=== PATIENT | female | born 1930 | race Caucasian/White ===

== ENCOUNTER 2017-08-20 01:43 | Inpatient (IN) | payer MEDICARE, OTHER ==
[~2017-08-20] VITALS: Ht 162.6 cm; Wt 59.0 kg
[~2017-08-20 01:43] MED LIST: ATOR1TAB PO; CITA10TA70 PO; CITA20TA3 GT; DABI150C PO; DIGO0.1262 PO; DILT120C65 PO; DOCU-137 PO; FERR-20 PO; METO25TA5 PO; OMEP20CA74 OR; RISP0.5T12 PO
[2017-08-20 02:22] LABS: Hematocrit 43.6 % (36.0-46.0); Hemoglobin 14.4 g/dL (12.2-16.2); Mean Corpuscular Hemoglobin 27.1 pg (28.0-32.0); Mean Corpuscular Hgb Conc. 32.9 g/dL (32.0-36.0); Mean Corpuscular Volume 82.4 fL (80.0-100.0); Platelet Count (auto) 266 10^3/uL (140-450); Red Blood Cells 5.29 10^6/uL (4.0-5.20); Red Cell Distribution Width 16.4 % (11.8-14.3); White Blood Cell 4.4 10^3/uL (4.4-10.8)
[2017-08-20 02:32] LABS: Basophils % (manual) 0 (0.0-2.0); Blast Cells 0; Eosinophils % (manual) 0 (0-7); Metamyelocytes % 0; Myelocytes % 0; Promyelocytes % 0; Reactive Lymphocytes 0
[2017-08-20 02:37] LABS: INR 1.09 (0.9-1.15); Partial Thromboplastin Time 35.5 sec (22.64-33.71); Prothrombin Time 11.9 sec (9.37-12.3)
[2017-08-20 02:44] LABS: Alanine Aminotransferase 11 U/L (13-56); Albumin 2.9 g/dL (3.4-5.0); Anion Gap 10 (5-15); Aspartate Aminotransferase 15 U/L (15-37); BUN/Creatinine Ratio 17.4; Blood Urea Nitrogen 20 mg/dL (7-18); Calcium 8.2 mg/dL (8.5-10.1); Carbon Dioxide 22 mmol/L (21-32); Chloride 106 mmol/L (98-107); GFR African American 58 mL/min; GFR Non-African American 48 mL/min; Glucose 123 mg/dL (74-106); Magnesium 2.2 mg/dL (1.6-2.6); Sodium 138 mmol/L (136-145)
[2017-08-20 02:49] LABS: Alkaline Phosphatase 72 U/L (45-117); Bilirubin, Total 0.6 mg/dL (0.2-1.0); Total Protein 6.9 g/dL (6.4-8.2)
[2017-08-20 03:10] LABS: Band Neutrophils % (manual) 7; Lymphocytes % (manual) 22 (10.0-50.0); Monocytes % (manual) 19 (0-12)
[2017-08-20 04:42] LABS: Amylase 34 U/L (25-115); Lipase 140 U/L (73-393)
[2017-08-20] MEDS ORDERED: DIGOXIN (250MCG/ML) 2 ML AMPULE IV ONE (04:45)
[2017-08-20] MEDS ORDERED: SODIUM CHLORIDE 0.9% 1,000 ML IV ONE (04:45)
[2017-08-20 06:22] LABS: Urine Bacteria MANY /hpf (None Seen); Urine Blood 1+ /uL (Negative); Urine Mucus FEW (None Seen); Urine Specific Gravity 1.018 (1.001-1.035); Urine WBC 870 /hpf (0 - 5)
[2017-08-20] MEDS ORDERED: cefTRIAXone 1GM/10ml IVPUSH 10 ML IV ONE (07:15)
[2017-08-20] MEDS ORDERED: SODIUM CHLORIDE 0.9% 1,000 ML IV SCH (09:20)
[2017-08-20] MEDS ORDERED: IOHEXOL 350 MG/ML 100ML IJ ONE (09:25)
[2017-08-20] MEDS ORDERED: TEMAZEPAM 15 MG CAP PO PRN (09:30)
[2017-08-20] MEDS ORDERED: NITROGLYCERIN 0.4 MG SL TAB SL PRN (09:30)
[2017-08-20] MEDS ORDERED: ACETAMINOPHEN 500 MG TAB PO PRN (09:30)
[2017-08-20] MEDS ORDERED: LORazepam 0.5 MG TAB PO PRN (09:30)
[2017-08-20] MEDS ORDERED: LACTULOSE 20Gm/30ML SOLN PO PRN (09:30)
[2017-08-20] MEDS ORDERED: MORPHINE SULFATE 4 MG/ML SYR/VIAL IV PRN (09:30)
[2017-08-20] MEDS ORDERED: PROMETHAZINE HCL 25 MG/ML 1ML IV PRN (09:30)
[2017-08-20] MEDS ORDERED: HYDROcodone-ACET 5/325MG TAB PO PRN (09:30)
[2017-08-20] MEDS: METOPROLOL TARTRATE 25 MG TAB PO SCH ×2 (09:41→21:56)
[2017-08-20] MEDS ORDERED: DIGOXIN (250MCG/ML) 2 ML AMPULE ONE (09:55)
[2017-08-20] MEDS ORDERED: DIGOXIN (250MCG/ML) 2 ML AMPULE IV SCH (10:00)
[2017-08-20] MEDS ORDERED: DIGOXIN 0.25 MG TAB PO SCH (10:00)
[2017-08-20] MEDS: ENOXAPARIN SOD 40 MG/0.4 ML SYRINGE SC SCH ×2 (10:01→21:55)
[2017-08-20] MEDS: ASPirin 81 mg TAB PO SCH (10:10)
[2017-08-20 10:23] LABS: CRP High Sensitivity 5.01 mg/dL (< 0.3)
[2017-08-20] MEDS: SODIUM CHLORIDE 0.9% 1,000 ML IV SCH ×2 (11:48→21:31)
[2017-08-20 20:00] VITALS: BP 109/79
[2017-08-20 21:41] VITALS: BP 109/79
[2017-08-21 04:33] VITALS: BP 106/54
[2017-08-21] MEDS: SODIUM CHLORIDE 0.9% 1,000 ML IV SCH (07:39)
[2017-08-21 08:00] VITALS: BP 93/62
[2017-08-21] MEDS: cefTRIAXone 1GM/10ml IVPUSH 10 ML IV SCH (08:32)
[2017-08-21 09:00] VITALS: BP 102/62
[2017-08-21] MEDS: ASPirin 81 mg TAB PO SCH (09:38)
[2017-08-21] MEDS: METOPROLOL TARTRATE 25 MG TAB PO SCH ×2 (09:39→21:36)
[2017-08-21] MEDS: ENOXAPARIN SOD 40 MG/0.4 ML SYRINGE SC SCH (09:39)
[2017-08-21] MEDS ORDERED: DIGOXIN (250MCG/ML) 2 ML AMPULE IV SCH (10:00)
[2017-08-21 10:11] LABS: Albumin 2.8 g/dL (3.4-5.0); BUN/Creatinine Ratio 18.2; Bilirubin, Total 0.3 mg/dL (0.2-1.0); Calcium 8.5 mg/dL (8.5-10.1); Potassium 4.6 mmol/L (3.5-5.1); Total Protein 6.6 g/dL (6.4-8.2)
[2017-08-21] MEDS ORDERED: FUROSEMIDE 20 MG/2 ML VIAL IV ONE (12:00)
[2017-08-21] MEDS ORDERED: POTASSIUM CHL 10% (20 MEQ/15ML) 15ml ORAL SOLN PO ONE (12:00)
[2017-08-21 13:00] VITALS: BP 127/68
[2017-08-21] MEDS ORDERED: CALC600C PO (14:37)
[2017-08-21] MEDS ORDERED: BIS10RS PR (14:37)
[2017-08-21] MEDS ORDERED: LOP2C PO (14:37)
[2017-08-21 17:14] VITALS: BP 129/100
[2017-08-21] MEDS: DABIGATRAN 75 MG CAP PO SCH (21:46)
[2017-08-21 22:03] VITALS: BP 149/75
[2017-08-22 04:17] VITALS: BP 140/52
[2017-08-22 06:08] LABS: Basophils # (auto) 0 uL; Basophils % (auto) 0.2 % (0.0-2.0); Eosinophils # (auto) 0 uL; Eosinophils % (auto) 0.1 % (0.0-7.0); Hematocrit 47.9 % (36.0-46.0); Hemoglobin 15.5 g/dL (12.2-16.2); Lymphocytes # (auto) 0.8 uL; Lymphocytes % (auto) 16.6 % (10.0-50.0); Mean Corpuscular Hemoglobin 27.2 pg (28.0-32.0); Mean Corpuscular Hgb Conc. 32.4 g/dL (32.0-36.0); Mean Corpuscular Volume 83.8 fL (80.0-100.0); Monocytes # (auto) 0.7 uL; Monocytes % (auto) 13.4 % (0.0-12.0); Neutrophils # (auto) 3.5 uL; Neutrophils % (auto) 69.7 % (37.0-80.0); Nucleated Red Blood Cells % 0.1 %; Platelet Count (auto) 273 10^3/uL (140-450); Red Blood Cells 5.71 10^6/uL (4.0-5.20); Red Cell Distribution Width 15.7 % (11.8-14.3); White Blood Cell 4.9 10^3/uL (4.4-10.8)
[2017-08-22 06:28] LABS: BUN/Creatinine Ratio 15.9; Calcium 9.2 mg/dL (8.5-10.1)
[2017-08-22 09:10] VITALS: BP 144/92
[2017-08-22] MEDS: DIGOXIN 0.125 MG TAB PO SCH (09:31)
[2017-08-22] MEDS: DABIGATRAN 75 MG CAP PO SCH ×2 (09:56→22:27)
[2017-08-22] MEDS: cefTRIAXone 1GM/10ml IVPUSH 10 ML IV SCH (09:56)
[2017-08-22] MEDS: CITALOPRAM HYDROBR 20 MG TAB PO SCH (09:56)
[2017-08-22] MEDS: METOPROLOL TARTRATE 25 MG TAB PO SCH ×2 (09:57→22:27)
[2017-08-22] MEDS: ASPirin 81 mg TAB PO SCH (09:57)
[2017-08-22 12:17] VITALS: BP 118/68
[2017-08-22] MEDS ORDERED: ERTAPENEM SOD INJ 1 GM in SODIUM CHL 0.9% 100 ML IV ONE (12:30)
[2017-08-22 17:19] VITALS: BP 139/66
[2017-08-22 22:08] VITALS: BP 143/95
[2017-08-23] MEDS: MORPHINE SULF INJ 2 MG/ML SYRINGE 1ML IV PRN ×2 (00:52→09:39)
[2017-08-23 04:54] VITALS: BP 135/91
[2017-08-23 06:22] LABS: Basophils # (auto) 0 uL; Basophils % (auto) 0.3 % (0.0-2.0); Eosinophils # (auto) 0 uL; Eosinophils % (auto) 0.2 % (0.0-7.0); Hematocrit 47.5 % (36.0-46.0); Hemoglobin 15.6 g/dL (12.2-16.2); Lymphocytes # (auto) 0.7 uL; Lymphocytes % (auto) 13.8 % (10.0-50.0); Mean Corpuscular Hemoglobin 27.4 pg (28.0-32.0); Mean Corpuscular Hgb Conc. 32.9 g/dL (32.0-36.0); Mean Corpuscular Volume 83.3 fL (80.0-100.0); Monocytes # (auto) 0.7 uL; Monocytes % (auto) 13.3 % (0.0-12.0); Neutrophils # (auto) 3.7 uL; Neutrophils % (auto) 72.4 % (37.0-80.0); Nucleated Red Blood Cells % 0.1 %; Platelet Count (auto) 240 10^3/uL (140-450); Red Cell Distribution Width 15.4 % (11.8-14.3)
[2017-08-23 06:40] LABS: Calcium 8.6 mg/dL (8.5-10.1); Potassium 3.4 mmol/L (3.5-5.1)
[2017-08-23 06:42] LABS: BUN/Creatinine Ratio 22.4
[2017-08-23 09:05] VITALS: BP 143/87
[2017-08-23] MEDS: DABIGATRAN 75 MG CAP PO SCH ×2 (10:00→22:33)
[2017-08-23] MEDS: CITALOPRAM HYDROBR 20 MG TAB PO SCH (10:29)
[2017-08-23] MEDS: DIGOXIN 0.125 MG TAB PO SCH (10:29)
[2017-08-23] MEDS: ASPirin 81 mg TAB PO SCH (10:29)
[2017-08-23] MEDS: METOPROLOL TARTRATE 25 MG TAB PO SCH ×2 (10:30→22:33)
[2017-08-23] MEDS: ERTAPENEM SOD INJ 1 GM in SODIUM CHL 0.9% 100 ML IV SCH (11:02)
[2017-08-23 12:41] VITALS: BP 127/80
[2017-08-23 17:24] VITALS: BP 120/72
[2017-08-23] MEDS: BOOST 8 ounces PO SCH (18:00)
[2017-08-23 21:57] VITALS: BP 113/89
[2017-08-24 05:04] VITALS: BP 118/85
[2017-08-24 08:00] VITALS: BP 135/92
[2017-08-24] MEDS: BOOST 8 ounces PO SCH ×2 (08:00→17:50)
[2017-08-24] MEDS: CITALOPRAM HYDROBR 20 MG TAB PO SCH (10:00)
[2017-08-24] MEDS: METOPROLOL TARTRATE 25 MG TAB PO SCH ×2 (10:00→22:00)
[2017-08-24] MEDS: ASPirin 81 mg TAB PO SCH (10:00)
[2017-08-24] MEDS: DABIGATRAN 75 MG CAP PO SCH ×2 (10:00→22:00)
[2017-08-24] MEDS: DIGOXIN 0.125 MG TAB PO SCH (10:00)
[2017-08-24 11:42] VITALS: BP 109/84
[2017-08-24] MEDS: ERTAPENEM SOD INJ 1 GM in SODIUM CHL 0.9% 100 ML IV SCH (15:00)
[2017-08-24 16:50] VITALS: BP 140/94
[2017-08-24 21:45] VITALS: BP 147/74
[2017-08-25 04:49] VITALS: BP 129/71
[2017-08-25 05:56] LABS: Basophils # (auto) 0 uL; Basophils % (auto) 0.3 % (0.0-2.0); Eosinophils # (auto) 0 uL; Eosinophils % (auto) 0.6 % (0.0-7.0); Hematocrit 46.3 % (36.0-46.0); Lymphocytes % (auto) 20.5 % (10.0-50.0); Mean Corpuscular Hgb Conc. 32.5 g/dL (32.0-36.0); Monocytes # (auto) 0.5 uL; Monocytes % (auto) 11.1 % (0.0-12.0); Neutrophils # (auto) 3.3 uL; Neutrophils % (auto) 67.5 % (37.0-80.0); Nucleated Red Blood Cells % 0.1 %; Platelet Count (auto) 269 10^3/uL (140-450); Red Blood Cells 5.58 10^6/uL (4.0-5.20); Red Cell Distribution Width 15.8 % (11.8-14.3); White Blood Cell 4.9 10^3/uL (4.4-10.8)
[2017-08-25 06:06] LABS: BUN/Creatinine Ratio 28.3; Calcium 8.3 mg/dL (8.5-10.1); Potassium 3.4 mmol/L (3.5-5.1)
[2017-08-25 07:53] VITALS: BP 151/88
[2017-08-25 08:00] VITALS: BP 151/88
[2017-08-25] MEDS: BOOST 8 ounces PO SCH (08:00)
[2017-08-25] MEDS: ERTAPENEM SOD INJ 1 GM in SODIUM CHL 0.9% 100 ML IV SCH (10:00)
[2017-08-25] MEDS: ASPirin 81 mg TAB PO SCH (10:00)
[2017-08-25] MEDS: DIGOXIN 0.125 MG TAB PO SCH (10:00)
[2017-08-25] MEDS: METOPROLOL TARTRATE 25 MG TAB PO SCH ×2 (10:00→21:46)
[2017-08-25 11:31] VITALS: BP 127/91
[2017-08-25] MEDS ORDERED: PPN PER PHARMACY 0 ML IV SCH (13:45)
[2017-08-25] MEDS ORDERED: POTASSIUM CHL 20MEQ/50ML 50 ML IV ONE (15:00)
[2017-08-25] MEDS ORDERED: LIDOCAINE 1% HCL (LOCAL ANESTH.) INJ 20ML MDV ID ONE (16:15)
[2017-08-25 16:51] VITALS: BP 143/88
[2017-08-25] MEDS ORDERED: DEXTROSE (50%) 50ML SYRG IV SCH (20:00)
[2017-08-25] MEDS: MORPHINE SULF INJ 2 MG/ML SYRINGE 1ML IV PRN (20:26)
[2017-08-25] MEDS: CLINIMIX PER PHARMACY IV NR (20:56)
[2017-08-25] MEDS: SODIUM CHLOR 0.9% PF (SALINE LOCK) 10ML VIAL IV SCH (21:45)
[2017-08-25 22:04] VITALS: BP 159/91
[2017-08-26] VITALS (7 sets, daily range): BP systolic 144–158; BP diastolic 74–102
[2017-08-26] MEDS: InsuLIN REG 1unit/0.01ml Soln (100units/ml) SC SCH ×5 (06:00→23:47)
[2017-08-26] MEDS: ACCU-CHEK COMFORT CURVE STRIP VI SCH ×5 (06:06→23:46)
[2017-08-26 06:57] LABS: Basophils # (auto) 0 uL; Basophils % (auto) 0.3 % (0.0-2.0); Eosinophils # (auto) 0.1 uL; Eosinophils % (auto) 1.2 % (0.0-7.0); Hemoglobin 15.7 g/dL (12.2-16.2); Lymphocytes # (auto) 1.1 uL; Lymphocytes % (auto) 16.7 % (10.0-50.0); Mean Corpuscular Hemoglobin 27.2 pg (28.0-32.0); Mean Corpuscular Hgb Conc. 32.8 g/dL (32.0-36.0); Monocytes # (auto) 0.6 uL; Monocytes % (auto) 8.6 % (0.0-12.0); Neutrophils # (auto) 4.8 uL; Neutrophils % (auto) 73.2 % (37.0-80.0); Nucleated Red Blood Cells % 0.2 %; Platelet Count (auto) 301 10^3/uL (140-450); Red Blood Cells 5.78 10^6/uL (4.0-5.20); Red Cell Distribution Width 15.8 % (11.8-14.3); White Blood Cell 6.5 10^3/uL (4.4-10.8)
[2017-08-26 07:46] LABS: Potassium 4.2 mmol/L (3.5-5.1)
[2017-08-26 07:47] LABS: BUN/Creatinine Ratio 25.4
[2017-08-26 07:48] LABS: Bilirubin, Total 0.5 mg/dL (0.2-1.0); Calcium 9.1 mg/dL (8.5-10.1); Phosphorus 1.9 mg/dL (2.5-4.90)
[2017-08-26 07:49] LABS: Albumin 2.9 g/dL (3.4-5.0); Magnesium 2.5 mg/dL (1.6-2.6); Pre Albumin 12.9 mg/dL (20.0-40.0)
[2017-08-26] MEDS: SODIUM CHLOR 0.9% PF (SALINE LOCK) 10ML VIAL IV SCH ×2 (10:00→22:36)
[2017-08-26] MEDS: ERTAPENEM SOD INJ 1 GM in SODIUM CHL 0.9% 100 ML IV SCH (10:48)
[2017-08-26] MEDS ORDERED: POTASSIUM PHOSPHATE 22 MEQ in SODIUM CHL 0.9% 100 ML IV ONE (11:00)
[2017-08-26] MEDS: D5W 5% 1,000 ML IV SCH (17:05)
[2017-08-26] MEDS: CLINIMIX PER PHARMACY IV NR (19:49)
[2017-08-26] MEDS ORDERED: PPN PER PHARMACY IV NR ×7 (20:00)
[2017-08-26] MEDS ORDERED: methylPREDNISolone SOD SUCC 125 MG/2 ML VL ONE (23:09)
[2017-08-26] MEDS ORDERED: methylPREDNISolone SOD SUCC 125 MG/2 ML VL IV ONE (23:15)
[2017-08-26] MEDS ORDERED: DILTIAZEM HCL 25 MG/5 ML VIAL IV ONE ×2 (23:15→23:17)
[2017-08-27] VITALS (7 sets, daily range): BP systolic 94–122; BP diastolic 57–77
[2017-08-27] MEDS: ACCU-CHEK COMFORT CURVE STRIP VI SCH ×4 (06:22→23:41)
[2017-08-27] MEDS: InsuLIN REG 1unit/0.01ml Soln (100units/ml) SC SCH ×4 (06:22→23:45)
[2017-08-27 08:04] LABS: Albumin 2.7 g/dL (3.4-5.0); Bilirubin, Total 0.4 mg/dL (0.2-1.0); Calcium 8.6 mg/dL (8.5-10.1); Magnesium 2.4 mg/dL (1.6-2.6); Phosphorus 2.8 mg/dL (2.5-4.90); Potassium 4.3 mmol/L (3.5-5.1); Total Protein 6.8 g/dL (6.4-8.2)
[2017-08-27] MEDS: ERTAPENEM SOD INJ 1 GM in SODIUM CHL 0.9% 100 ML IV SCH (10:46)
[2017-08-27] MEDS: SODIUM CHLOR 0.9% PF (SALINE LOCK) 10ML VIAL IV SCH ×2 (10:47→21:36)
[2017-08-27] MEDS ORDERED: MORPHINE SULFATE 4 MG/ML SYR/VIAL IV PRN (12:15)
[2017-08-27] MEDS ORDERED: LORazepam 0.5 MG TAB PO PRN (12:15)
[2017-08-27] MEDS ORDERED: HYDROcodone-ACET 5/325MG TAB PO PRN (12:15)
[2017-08-27] MEDS: D5W 5% 1,000 ML IV SCH (16:52)
[2017-08-27] MEDS ORDERED: PPN PER PHARMACY IV NR ×8 (20:00)
[2017-08-28 05:00] VITALS: BP 102/56
[2017-08-28] MEDS: ACCU-CHEK COMFORT CURVE STRIP VI SCH ×3 (05:46→18:12)
[2017-08-28] MEDS: InsuLIN REG 1unit/0.01ml Soln (100units/ml) SC SCH ×3 (05:47→18:00)
[2017-08-28 07:08] LABS: Albumin 2.6 g/dL (3.4-5.0); BUN/Creatinine Ratio 36.2; Bilirubin, Total 0.4 mg/dL (0.2-1.0); Calcium 8.3 mg/dL (8.5-10.1); Magnesium 2.4 mg/dL (1.6-2.6); Phosphorus 2.3 mg/dL (2.5-4.90); Potassium 3.6 mmol/L (3.5-5.1); Total Protein 6.6 g/dL (6.4-8.2)
[2017-08-28 08:00] VITALS: BP 94/64
[2017-08-28 09:00] VITALS: BP 94/64
[2017-08-28] MEDS: D5W 5% 1,000 ML IV SCH (09:21)
[2017-08-28] MEDS: ERTAPENEM SOD INJ 1 GM in SODIUM CHL 0.9% 100 ML IV SCH (09:22)
[2017-08-28] MEDS: SODIUM CHLOR 0.9% PF (SALINE LOCK) 10ML VIAL IV SCH ×2 (09:22→22:33)
[2017-08-28] MEDS ORDERED: POTASSIUM PHOSP 22MEQ(15MMOLE) in NS 100 ML IV ONE (09:30)
[2017-08-28 13:00] VITALS: BP 93/56
[2017-08-28] MEDS: MORPHINE SULF INJ 2 MG/ML SYRINGE 1ML IV PRN (14:13)
[2017-08-28 17:00] VITALS: BP 91/69
[2017-08-28] MEDS: PPN PER PHARMACY IV NR ×9 (20:24)
[2017-08-28 22:46] VITALS: BP 98/74
[2017-08-29] MEDS: ACCU-CHEK COMFORT CURVE STRIP VI SCH ×3 (00:14→11:35)
[2017-08-29] MEDS: D5W 5% 1,000 ML IV SCH ×2 (03:15→22:45)
[2017-08-29 05:43] VITALS: BP 109/62
[2017-08-29 05:43] LABS: Basophils # (auto) 0.1 uL; Basophils % (auto) 0.6 % (0.0-2.0); Eosinophils # (auto) 0.1 uL; Eosinophils % (auto) 0.6 % (0.0-7.0); Hematocrit 45.2 % (36.0-46.0); Hemoglobin 14.8 g/dL (12.2-16.2); Lymphocytes # (auto) 1.5 uL; Lymphocytes % (auto) 16.4 % (10.0-50.0); Mean Corpuscular Hemoglobin 27.3 pg (28.0-32.0); Mean Corpuscular Hgb Conc. 32.8 g/dL (32.0-36.0); Mean Corpuscular Volume 83.1 fL (80.0-100.0); Monocytes # (auto) 0.8 uL; Monocytes % (auto) 9.4 % (0.0-12.0); Neutrophils # (auto) 6.5 uL; Nucleated Red Blood Cells % 0.6 %; Platelet Count (auto) 238 10^3/uL (140-450); Red Blood Cells 5.44 10^6/uL (4.0-5.20); Red Cell Distribution Width 15.8 % (11.8-14.3); White Blood Cell 8.9 10^3/uL (4.4-10.8)
[2017-08-29] MEDS: InsuLIN REG 1unit/0.01ml Soln (100units/ml) SC SCH ×3 (05:58→11:35)
[2017-08-29 06:12] LABS: Albumin 2.4 g/dL (3.4-5.0); BUN/Creatinine Ratio 43.4; Bilirubin, Total 0.4 mg/dL (0.2-1.0); Calcium 7.7 mg/dL (8.5-10.1); Phosphorus 2.8 mg/dL (2.5-4.90); Potassium 3.6 mmol/L (3.5-5.1); Total Protein 6.1 g/dL (6.4-8.2)
[2017-08-29 09:00] VITALS: BP 116/69
[2017-08-29] MEDS: SODIUM CHLOR 0.9% PF (SALINE LOCK) 10ML VIAL IV SCH ×2 (10:21→22:23)
[2017-08-29] MEDS: ERTAPENEM SOD INJ 1 GM in SODIUM CHL 0.9% 100 ML IV SCH (10:21)
[2017-08-29 13:00] VITALS: BP 99/70
[2017-08-29 17:00] VITALS: BP 119/93
[2017-08-29] MEDS ORDERED: MORPHINE SULFATE 10 MG/ML INJ 1ML SDV IV PRN (17:30)
[2017-08-29] MEDS: MORPHINE SULFATE 10 MG/ML INJ 1ML SDV IV PRN (17:37)
[2017-08-29] MEDS: PPN PER PHARMACY IV NR ×9 (17:38)
[2017-08-29 22:00] VITALS: BP 111/75
[2017-08-30] VITALS (8 sets, daily range): BP systolic 80–105; BP diastolic 50–76
[2017-08-30] MEDS: MORPHINE SULFATE 10 MG/ML INJ 1ML SDV IV PRN (03:21)
[2017-08-30] MEDS: SODIUM CHLOR 0.9% PF (SALINE LOCK) 10ML VIAL IV SCH ×2 (10:26→20:59)
[2017-08-30] MEDS: ERTAPENEM SOD INJ 1 GM in SODIUM CHL 0.9% 100 ML IV SCH (10:26)
[2017-08-30] MEDS: D5W 5% 1,000 ML IV SCH (14:57)
[2017-08-30] MEDS: ACETAMINOPHEN 650 mg PER 20 mL UD PO PRN ×2 (15:39→21:00)
[2017-08-30] MEDS ORDERED: LORazepam 2MG/ML-1ML VIAL ONE (17:29)
[2017-08-30] MEDS ORDERED: SODIUM CHLORIDE 0.9% 250 ML IV ONE (23:00)
[2017-08-31] VITALS (8 sets, daily range): BP systolic 82–134; BP diastolic 52–73
[2017-08-31] MEDS ORDERED: SODIUM CHLORIDE 0.9% 250 ML IV ONE (00:15)
[2017-08-31] MEDS ORDERED: D5W 5% 1,000 ML IV SCH (01:15)
[2017-08-31] MEDS: ACETAMINOPHEN 650 mg PER 20 mL UD PO PRN (07:02)
[2017-08-31] MEDS: SODIUM CHLOR 0.9% PF (SALINE LOCK) 10ML VIAL IV SCH ×2 (10:00→22:03)
[2017-08-31] MEDS: ERTAPENEM SOD INJ 1 GM in SODIUM CHL 0.9% 100 ML IV SCH (10:00)
[2017-09-01 05:00] VITALS: BP 112/74
[2017-09-01 07:51] VITALS: BP 98/59
[2017-09-01 07:59] VITALS: BP 98/59
[2017-09-01] MEDS: SODIUM CHLOR 0.9% PF (SALINE LOCK) 10ML VIAL IV SCH (10:01)
[2017-09-01] MEDS: ERTAPENEM SOD INJ 1 GM in SODIUM CHL 0.9% 100 ML IV SCH (10:01)
[2017-09-01 12:00] VITALS: BP 99/76
== END 2017-09-01 13:40 | disposition hospice, home (50) | DRG 871 ==
LOC: EDBD 01:43 → ER 01:54 → TELE 01:55 → TELE-EAST 18:12
PROVIDERS: ADMIT Internal Medicine; ATTEND Internal Medicine
PROC: 02HV33Z Insertion of Infusion Device into Superior Vena Cava, Percutaneous Approach (ICD-10-PCS; principal; 2017-08-25)
DX: A41.4 Sepsis due to anaerobes (principal); G93.40 Encephalopathy, unspecified; N17.9 Acute kidney failure, unspecified; I11.0 Hypertensive heart disease with heart failure; I42.0 Dilated cardiomyopathy; I50.32 Chronic diastolic (congestive) heart failure; E87.0 Hyperosmolality and hypernatremia; D68.69 Other thrombophilia; N39.0 Urinary tract infection, site not specified; I48.91 Unspecified atrial fibrillation; F03.90 Unspecified dementia, unspecified severity, without behavioral disturbance, psychotic disturbance, mood disturbance, and anxiety; B96.1 Klebsiella pneumoniae [K. pneumoniae] as the cause of diseases classified elsewhere; E78.5 Hyperlipidemia, unspecified; F32.9 Major depressive disorder, single episode, unspecified; Z66 Do not resuscitate; F41.9 Anxiety disorder, unspecified; K57.90 Diverticulosis of intestine, part unspecified, without perforation or abscess without bleeding; Z79.899 Other long term (current) drug therapy; I69.334 Monoplegia of upper limb following cerebral infarction affecting left non-dominant side; Z79.82 Long term (current) use of aspirin; Z88.5 Allergy status to narcotic agent; Z88.2 Allergy status to sulfonamides
CPT/HCPCS: 36415; 36600; 51702; 71045; 71275; 80048; 80053; 80061; 80162; 81001; 82040; 82150; 82550; 82805; 82962; 83605; 83690; 83735; 83880; 84100; 84443; 84478; 84484; 85007; 85025; 85027; 85379; 85610; 85652; 85730; 86141; 87040; 87081; 87086; 87088; 87186; 92610; 93005; 93306; 96361; 96374; 96375; 97163; J1335; J1815